=== PATIENT | male | born 1950 | race Caucasian/White ===

== ENCOUNTER 2016-09-14 09:47 | Emergency (ER) | payer MEDICARE | END 2016-09-14 13:30 | disposition home or self-care (01) | LOC: D.ER 09:47 | DX: M54.31 Sciatica, right side (principal); F17.200 Nicotine dependence, unspecified, uncomplicated; E11.9 Type 2 diabetes mellitus without complications ==

== ENCOUNTER 2019-10-12 03:08 | Inpatient (IN) | payer MEDICARE ==
[2019-10-12] VITALS (9 sets, daily range): BP systolic 116–158; BP diastolic 73–95
[~2019-10-12] VITALS: Ht 172.7 cm; Wt 90.5 kg
--- NOTE | ~2019-10-12 | HEMODYNAMI ---
PATIENT:VALDO ARAIZA MEDICAL RECORD: [id number] : 52 LOCATION:[address] [id number] ADMISSION DATE: 10/12/19 Generatedon:10/14/201913:51 Patient name: VALDO ARAIZA Patient #: [id number] SSN: [id number] : 1950 Date of study: 10/14/2019 Page: Of Hemodynamic Procedure Report Patient Data Patient Demographics Procedure consent was obtained First Name: VALDO Gender: Male Last Name: JOSE G : 1950 [facility] Initial: F Age: 69 year(s) Patient #: [id number] Race: SSN: [id number] Additional ID: [id number] Contact details Address: [address] [place] [address] State: [place] City: [place] Zip code: [address] Admission Admission Data Admission Date: 10/12/2019 Admission Time: 6:47 Arrival Date: 10/12/2019 Arrival Time: 6:47 Admit Source: Emergency Insurance Payor: Medicare department [facility] #: [id number] Room #: [facility] Procedure Procedure Types Cath Procedure Diagnostic Procedure [facility] LH w/Coronaries Sedation Charges Moderate Sedation up to 15 minutes Procedure Description Procedure Date Procedure Date: 10/14/2019 Procedure Start Time: 13:33 Procedure End Time: 13:46 Procedure Staff Name Function Gaurav Hunt MD Performing Physician Sharon Seaman RN Nurse Chance Yu RT Scrub Jennifer Herr RT Monitor Procedure Data Cath Procedure Fluoroscopy Diagnostic fluoroscopy Total fluoroscopy Time: 2.3 time: 2.3 min min Diagnostic fluoroscopy Total fluoroscopy dose: 892 dose: 892 mGy mGy Contrast Material Contrast Material Type Amount (ml) Isovue 300 114 Entry Location Entry Primary Successful Side Size Upsize Upsize Entry Closure Succes sful Closure Location (Fr) 1 (Fr) 2 (Fr) Remarks Device Remarks Femoral Right 5 Fr Exoseal artery Estimated blood loss: 5 ml Diagnostic catheters Device Type Used For End Catheter Placement MULTIPACK JL 4.0 5Fr Left Coronary catheter Angiography MULTIPACK 3DRC 5Fr Right Coronary catheter Angiography MULTIPACK Pigtail 5 Fr LV Angiography catheter Procedure Complications No complications Procedure Medications Medication Administration Route Dosage Oxygen etCO2 Nasal cannula 2 l/min Lidocaine 2% added to field 20 Heparin Flush Bag added to field 2 bags (1000units/500ml NS) 0.9% NaCl I.V. 100 ml/hr Cardizem I.V. drip 5 mg/hr (125mg/125ml NS) Versed I.V. 1 mg Fentanyl I.V. 50 mcg Versed I.V. 1 mg Fentanyl I.V. 50 mcg Hemodynamics Rest Heart Rate: 87 (bpm) Pressure Samples Time Site Value (mmHg) Purpose Heart Use Rate(bpm) 13:42 LV 161/0,16 Snapshot 96 13:43 AO 122/69(93) Pullback 92 13:43 LV 158/-1,17 Pullback 92 Gradients Valve Time Site 1 Site 2 Mean SEP/DFP Peak To Heart Use (mmHg) (sec/min) Peak Rate (mmHg) (bpm) Aortic 13:43 LV AO 28 20 36 92 158/-1,17 122/69(93) Calculations Valve P-P Mean Valve Index Valve Source Name Gradient Area Flow (cm2) Aortic 36 28 36 28 Snapshots Pre Cath Intra NCS Post Cath Vital Signs Time Heart Resp SPO2 etCO2 NIBP (mmHg) Rhythm Pain Sedation Rate (ipm) (%) (mmHg) Status Level (bpm) 13:11:06 87 27 94 3 138/79(109) A-Fib 0 (11) 10(A) , No pain 13:15:26 93 25 92 7.5 111/73(96) A-Fib 0 (11) 10(A) , No pain 13:20:21 93 24 93 32.3 115/78(94) A-Fib 0 (11) 10(A) , No pain 13:24:13 84 22 92 3 122/72(100) A-Fib 0 (11) 10(A) , No pain 13:28:06 93 21 92 0 108/70(91) A-Fib 0 (11) 9(A) , No pain 13:31:56 96 21 92 3.7 115/75(103) A-Fib 0 (11) 9(A) , No pain 13:35:47 86 20 92 33 115/74(88) A-Fib 0 (11) 9(A) , No pain 13:40:05 89 18 91 23.2 137/78(96) A-Fib 0 (11) 10(A) , No pain 13:44:32 97 17 92 31.5 105/75(87) A-Fib 0 (11) 10(A) , No pain Medications Time Medication Route Dose Verified Delivered Reason Notes Effectiveness by by 13:10:31 Oxygen etCO2 2 Gaurav Buffie used for Nasal l/min Gilbert Seaman RN procedure cannula 13:10:38 Lidocaine 2% added 20ml Gaurav Gaurav for local to vial Gilbert Hunt MD anesthetic field 13:10:45 Heparin Flush added 2 Gaurav Gaurav used for Bag to bags Gilbert Hunt MD procedure (1000units/500ml field NS) 13:10:53 Cardizem I.V. 5 Gaurav Buffie Per Continued (125mg/125ml NS) drip mg/hr Gilbert Seaman RN physician drip from floor via smart pump 13:10:54 0.9% NaCl I.V. 100 Gaurav Buffie Per ml/hr Gilbert Seaman RN physician 13:21:41 Versed I.V. 1 mg Gaurav Buffie for Gilbert Seaman RN sedation 13:21:48 Fentanyl I.V. 50 Gaurav Buffie for mcg Gilbert Seaman RN sedation 13:36:39 Versed I.V. 1 mg Gaurav Buffie for Gilbert Seaman RN sedation 13:36:43 Fentanyl I.V. 50 Gaurav Buffie for mcg Gilbert Seaman RN sedation Procedure Log Time Note 12:50:13 Informed consent obtained and on chart 12:50:42 Sharon Seaman RN sent for patient. Start room use. 13:10:22 Vital chart was started 13:10:31 Oxygen 2 l/min etCO2 Nasal cannula was administered by Sharon eSaman RN; used for procedure; Verbal order read back and verified. 13:10:38 Lidocaine 2% 20ml vial added to field was administered by Gaurav Hunt MD; for local anesthetic; Verbal order read back and verified. 13:10:40 Procedure Status Urgent Heart Cath (IP). 13:10:45 Heparin Flush Bag (1000units/500ml NS) 2 bags added to field was administered by Gaurav Hunt MD; used for procedure; Verbal order read back and verified. 13:10:53 Cardizem (125mg/125ml NS) 5 mg/hr I.V. drip was administered by Sharon Seaman RN; Per physician; Continued drip from floor via smart pump Verbal order read back and verified. 13:10:53 Time tracking: Regular hours (M-F 7:00 - 5:00) 13:10:54 0.9% NaCl 100 ml/hr I.V. was administered by Sharon Seaman RN; Per physician; Verbal order read back and verified. 13:10:57 Plan of Care:Hemodynamics will remain stable., Cardiac rhythm will remain stable., Comfort level will be maintained., Respiratory function will remain adequate., Patient/ family verbilizes understanding of procedure., Procedure tolerated without complication., Recovers from procedure without complications.. 13:11:01 Patient received from Med II to [facility] 2 Alert and oriented. Tansferred to table in Supine position. 13:11:02 Warm blankets applied, and jacob hugger turned on for patient comfort. 13:11:03 Correct patient and procedure confirmed by team. 13:11:04 Baseline sample Acquired. 13:11:04 ECG and BP/O2 sat monitors applied to patient. 13:11:14 Rhythm: atrial fibrillation 13:11:15 Full Disclosure recording started 13:11:19 H&P Date Dictated: 10/14/2019 New H&P dictated by physician.. 13:11:20 Pre-procedure instructions explained to patient. 13:11:21 Pre-op teaching completed and patient verbalized understanding. 13:12:48 Family unavailable. 13:12:50 Patient NPO since Midnight. 13:12:52 Is the patient allergic to Iodine/contrast media? No. 13:12:53 Was the patient premedicated? Yes 13:12:54 Is patient on blood thinner?Yes 13:12:56 ACC The patient was administered the following blood thiners within the last 24 hours: ACCLovenox 13:12:58 Patient diabetic? No. 13:13:00 Previous problem with sedation/anesthesia? No ? 13:13:02 Snore? Yes 13:13:03 Sleep apnea? No 13:13:05 Deviated septum? No 13:13:07 Opens mouth fully? Yes 13:13:07 Sticks out tongue? Yes 13:13:09 Airway obstruction? No ? 13:13:12 Dentures? No ? 13:13:14 Pre procedure: right dorsailis pedis pulse 1+ Palpable, but thready & weak; easily obliterated 13:13:17 Pre procedure: left dorsailis pedis pulse 1+ Palpable, but thready & weak; easily obliterated 13:13:20 Patient pain scale 0/10 ?. 13:13:25 IV patent on arrival in left forearm with 0.9% NaCl at [facility]. 13:13:28 Lab results completed and on chart. 13:13:34 Stress Test: no; N/A ? 13:13:38 Right groin area was prepped with chlora-prep and draped in sterile fashion 13:13:39 Alarms reviewed by R. N. 13:13:40 Sharps counted by scrub and verified by R.N. 13:13:41 Physician arrived 13:13:41 --------ALL STOP TIME OUT------ 13:13:42 Final Timeout: patient, procedure, and site verified with staff and physician. All members of the team are in agreement. 13:13:44 Right groin site verified by team. 13:13:47 Fire Safety Assessment: A--An alcohol-based skin anteseptic being used preoperatively., C--Open oxygen or nitrous oxide is being used., D--An ESU, laser, or fiber-optic light is being used. 13:13:50 Physical assessment completed. ASA score P 2 - A patient with mild systemic disease as per Gaurav Hunt MD. 13:15:38 2) 60-89 Mildly reduced kidney function, and other findings (as for stage 1) point to kidney disease. 13:19:45 Zero performed for pressure channel P1 13:20:26 Maximum allowable contrast dose (3.7 X eGFR X 0.75)177 ml. 13:20:30 Sedation plan: IV Moderate Sedation Medication:Versed, Fentanyl 13:20:34 Use device set Femoral Dx 13:20:35 ACIST Syringe (94485) opened to sterile field. 13:20:35 Bag Decanter (2002S) opened to sterile field. 13:20:35 Medline Cath Pack ([id number]) opened to sterile field. 13:20:36 ACIST Hand Control (97533) opened to sterile field. 13:20:37 ACIST Manifold (09297) opened to sterile field. 13:20:37 DIAGNOSTIC Multipack 5Fr catheter set (WJ4264) opened to sterile field. 13:20:38 Tegaderm 4 x 4 (1626W) opened to sterile field. 13:20:39 SHEATH 5FR [place] (IPZ981) opened to sterile field. 13:20:40 EMERALD Guide Wire (623-171) opened to sterile field. 13:21:41 Versed 1 mg I.V. was administered by Sharon Seaman RN; for sedation; Verbal order read back and verified. 13:21:48 Fentanyl 50 mcg I.V. was administered by Sharon Seaman RN; for sedation; Verbal order read back and verified. 13:33:21 Procedure started. 13:33:30 Local anesthetic to right femoral artery with Lidocaine 2% by Gaurav Hunt MD.INITIAL ACCESS ONLY 13:33:37 A 5 Fr sheath was inserted into the Right Femoral artery 13:35:40 A MULTIPACK JL 4.0 5Fr catheter was advanced over the wire and used for Left Coronary Angiography. 13:36:39 Versed 1 mg I.V. was administered by Sharon Seaman RN; for sedation; Verbal order read back and verified. 13:36:43 Fentanyl 50 mcg I.V. was administered by Sharon Seaman RN; for sedation; Verbal order read back and verified. 13:36:58 LCA angiography performed. 13:37:00 Injector settings: Ml/sec: 3, Volume: 6, 13:38:13 Catheter removed. 13:38:18 A MULTIPACK 3DRC 5Fr catheter was advanced over the wire and used for Right Coronary Angiography. 13:40:19 RCA angiography performed. 13:40:22 Injector settings: Ml/sec: 3, Volume: 6, 13:40:54 Catheter removed. 13:41:01 A MULTIPACK Pigtail 5 Fr catheter was advanced over the wire and used for LV Angiography. 13:42:22 LV hemodynamics recorded. 13:42:23 LV gram done using ROBERTSON 13:42:26 Injector settings: Ml/sec: 5, Volume: 15, 13:42:42 EF : 60 % 13:43:39 Aortic Root visualized 13:43:46 ACCDominant side:Right 13:44:39 Catheter removed. 13:44:43 EXOSEAL 5Fr (EX500) opened to sterile field. 13:44:51 Sheath removed intact; hemostasis achieved with Exoseal to the Right Femoral artery. 13:45:02 Procedure ended.(Physican Out) 13:45:18 Fluoroscopy time 02.30 minutes. 13:45:23 Fluoroscopy dose: 892 mGy 13:45:23 Flurop Dose total: 892 13:45:28 Dose Area Product 61051 mGy/cm. 13:45:31 Contrast amount:Isovue 300 114ml. 13:45:33 Maximum allowable dose exceeded? No. 13:45:34 Sharps counted by scrub and verified by R.N. 13:45:38 Insertion/operative site no bleeding no hematoma. 13:45:41 Post-op/insertion site Right Femoral artery dressed using a 4 x 4 and Tegaderm. 13:45:45 Post procedure rhythm: unchanged. 13:45:48 Estimated blood loss: 5 ml 13:45:50 Post procedure instruction explained to patient.Patient verbalizes understanding. 13:45:51 Patient needs reinforcement of post procedure teaching. 13:46:23 Procedure type changed to Cath procedure, Diagnostic procedure, C, [facility] w/Coronaries, Sedation Charges, Moderate Sedation up to 15 minutes 13:46:25 Procedure and supply charges have been captured, reviewed, submitted and are correct. 13:46:29 Procedure Complication : No complications 13:46:31 Vital chart was stopped 13:46:36 [facility] Findings: MVD- MD will discuss options w/ pt 13:46:38 Operative report dictated upon procedure completion. 13:46:38 See physician's report for complete and final results. 13:46:41 Report given to [facility]. 13:46:44 Patient transfered to [facility] with Stretcher. 13:46:46 Procedure ended. 13:46:46 Full Disclosure recording stopped 13:46:53 End room use (Document Last) 13:48:48 Arrival Date: 10/12/2019 6:47:00 AM 13:49:05 Insurance Payor : Medicare 13:49:09 Admit Source: Emergency department Device Usage Item Name Manufacture Quantity Catalog Hospital Part Current Minimal L ot# / Number Charge Number Stock Stock Serial# Code ACIST Acist 1 83571 [id number] 289123 636975 20 Syringe Medical (00709) Systems Inc Bag Microtek 1 2001S 939955 34272 995122 5 Decanter Medical Inc. () Medline Medline 1 [id number] 110415 72699 800068 5 Cath Pack ([id number]) ACIST Hand Acist 1 88626 124301 082324 261771 5 Control Medical (23711) Systems Inc ACIST Acist 1 76508 914973 197677 765703 5 Manifold Medical (93987) Systems Inc DIAGNOSTIC Cardinal 1 [id number] 923660 65365 947063 30 Multipack Health 5Fr catheter set (UL9794) Tegaderm 4 3M 1 1626W 093619 310445 854002 5 x 4 (1626W) SHEATH 5FR Terumo 1 [id number] 517475 509223 674798 5 [place] (PXB630) EMERALD Cardinal 1 502-455 647085 004235 957772 5 Guide Wire [facility] (502455) MULTIPACK Cardinal 1 795404 5 JL 4.0 5Fr Health catheter MULTIPACK Cardinal 1 479390 5 3DRC 5Fr Health catheter MULTIPACK Cardinal 1 736713 5 Pigtail 5 Health Fr catheter EXOSEAL 5Fr Cardinal 1 EX500 415891 703326 291014 10 (EX500) Health Signature Audit [place] Stage Time Signature Unsigned Intra-Procedure 10/14/2019 Jennifer Herr 1:49:37 PM RT(R) Intra-Procedure 10/14/2019 Sharon Seaman RN 1:50:49 PM Intra-Procedure 10/14/2019 Gaurav Hunt MD 1:51:16 PM Signatures Performing Physician : Signature : Gaurav Hunt MD Date : Time : Nurse : Sharon Seaman RN Signature : Date : Time : Monitor : Jennifer Nemesio RT Signature : Date : Time : [place] [id number] [place] [address]
[2019-10-12 03:22] LABS: BASOPHILS 0.2 % (0-2); EOSINOPHILS 1.3 % (0-7); HEMATOCRIT 37.8 % (42.0-54.0); IMMATURE GRANULOCYTES 0.2 % (0-5); LYMPHOCYTES 25.3 % (15-50); MCH 30.3 pg (26.0-34.0); MCHC 31.7 g/dL (31.0-37.0); MCV 95.5 fL (80.0-100.0); MONOCYTES 5.1 % (2-11); NEUTROPHILS 67.9 % (40-80); RBC 3.96 10x6/uL (4.20-6.10); RDW 15.1 % (11.5-14.5); WBC 5.5 10x3/uL (4.8-10.8)
[2019-10-12 03:25] LABS: PLATELET COUNT 158 10x3/uL (130-400)
[2019-10-12 03:28] LABS: CALC OSMOLALITY 277 mosm/kg (275-300); CARBON DIOXIDE 26.9 mmol/L (21.0-32.0); CHLORIDE - SERUM 100 mmol/L (98-107); CREATININE - SERUM 1.3 mg/dL (0.6-1.3); POTASSIUM - SERUM 5.4 mmol/L (3.5-5.1); SODIUM 137 mmol/L (136-145); UREA NITROGEN 16 mg/dL (7-18); eGFR NON AFRICAN AMERICAN 58 mL/min (90-120)
[2019-10-12 03:31] LABS: APTT 21.4 SECONDS (22.8-39.4); INR 1.1 (0.85-1.17); PROTIME 14.2 SECONDS (11.6-15.0)
[2019-10-12 03:32] LABS: D-DIMER-QUANTITATIVE 1.06 ug/mLFEU (0.20-0.54); GLUCOSE 155 mg/dL (74-106)
--- NOTE | 2019-10-12 03:45 | NUR ---
PT VOIDED 175ML LIGHT YELLOW URINE AT THIS TIME. CALL LIGHT IN REACH. WILL CONTINUE TO MONITOR.
[2019-10-12 03:59] LABS: ALBUMIN 3.7 g/dL (3.4-5.0); ALKALINE PHOSPHATASE 172 U/L (30-120); ALT (SGPT) 50 U/L (10-68); BILIRUBIN - TOTAL 0.64 mg/dL (0.2-1.3); CKMB 1.9 U/L (0.0-3.6); CREATINE KINASE 155 UL (21-232); PRO BNP 1839 pg/mL (0-125); PROTEIN - SERUM 8.7 g/dL (6.4-8.2)
[2019-10-12 04:05] LABS: TROPONIN-I < 0.017 ng/mL (0.000-0.060)
[2019-10-12 04:16] LABS: BILIRUBIN NEGATIVE (NEGATIVE); GLUCOSE NEGATIVE (NEGATIVE); KETONE NEGATIVE (NEGATIVE); NITRITE NEGATIVE (NEGATIVE); UROBILINOGEN NORMAL (NORMAL)
--- NOTE | 2019-10-12 04:20 | NUR ---
PT VOIDED 500ML LIGHT YELLOW URINE AT THIS TIME.
--- NOTE | 2019-10-12 04:57 | NUR ---
PT TO RADIOLOGY AT THIS TIME.
--- NOTE | 2019-10-12 07:00 | NUR ---
PT LAYING IN BED. NO DISTRESS NOTED. COLOR WNL FOR RACE. VSS. WILL CONTINUE TO MONITOR. AWAITING BED ASSIGNMENT.
--- NOTE | 2019-10-12 12:38 | NUR ---
PT ARRIVED TO ROOM VIA WHEELCHAIR. ALERT AND ORIENTED, UP WITHOUT ASSIST. USES URINAL. CL IN REACH, SRX2 .
[2019-10-12 15:30] LABS: CKMB 1.3 U/L (0.0-3.6); CREATINE KINASE 88 UL (21-232); MAGNESIUM - SERUM 1.8 mg/dL (1.8-2.4); TROPONIN-I < 0.017 ng/mL (0.000-0.060)
[2019-10-12 20:22] LABS: CREATINE KINASE 96 UL (21-232); TROPONIN-I < 0.017 ng/mL (0.000-0.060)
--- NOTE | 2019-10-13 01:00 | NUR ---
RECIEVED REPORT FROM PRIMARY NURSE. [facility] CARE AT THIS TIME. PT ALERT/ORIENTED. MOVED FROM 2132 TO 2121 AFTER RECEIVING CONFIRMATION FROM ELANA IN LAB THAT PATIENT IS NEGATIVE FOR HIS COVID SWAB.
[2019-10-13 03:14] LABS: BASOPHILS 0.1 % (0-2); EOSINOPHILS 4.3 % (0-7); HEMATOCRIT 34.6 % (42.0-54.0); HEMOGLOBIN 10.7 g/dL (13.5-17.5); IMMATURE GRANULOCYTES 1.1 % (0-5); LYMPHOCYTES 19.6 % (15-50); MCH 29.6 pg (26.0-34.0); MCHC 30.9 g/dL (31.0-37.0); MCV 95.8 fL (80.0-100.0); MEAN PLATELET VOLUME 9.3 fL (7.4-10.4); MONOCYTES 7.6 % (2-11); NEUTROPHILS 67.3 % (40-80); PLATELET COUNT 225 10x3/uL (130-400); RBC 3.61 10x6/uL (4.20-6.10); RDW 15.2 % (11.5-14.5); WBC 8.8 10x3/uL (4.8-10.8)
[2019-10-13 03:50] LABS: ALBUMIN 3.2 g/dL (3.4-5.0); ALKALINE PHOSPHATASE 138 U/L (30-120); ALT (SGPT) 40 U/L (10-68); BILIRUBIN - TOTAL 0.89 mg/dL (0.2-1.3); CALC OSMOLALITY 277 mosm/kg (275-300); CALCIUM 8.3 mg/dL (8.5-10.1); CHLORIDE - SERUM 102 mmol/L (98-107); CREATINE KINASE 87 UL (21-232); CREATININE - SERUM 1.4 mg/dL (0.6-1.3); GLUCOSE 135 mg/dL (74-106); MAGNESIUM - SERUM 1.9 mg/dL (1.8-2.4); PROTEIN - SERUM 7.7 g/dL (6.4-8.2); SODIUM 137 mmol/L (136-145); UREA NITROGEN 18 mg/dL (7-18); eGFR NON AFRICAN AMERICAN 53 mL/min (90-120)
[2019-10-13 03:53] LABS: CARBON DIOXIDE 33.7 mmol/L (21.0-32.0); POTASSIUM - SERUM 4.1 mmol/L (3.5-5.1); TROPONIN-I < 0.017 ng/mL (0.000-0.060)
[2019-10-13 04:00] VITALS: BP 111/65
--- NOTE | 2019-10-13 04:47 | NUR ---
RESTING IN BED WITH EYES CLOSED. AFIB PER TELEMETRY. IV CARDIZEM INFUSING AT 5ML/HR. CPOC.
--- NOTE | 2019-10-13 07:00 | NUR ---
RECEIVED REPORT. ASSUMED CARE OF PATIENT. PATIENT SITTING UP IN BED WITH EYES OPEN, ATTENTION TOWARDS TELEVISION AT THIS TIME. BEDSIDE SHIFT REPORT COMPLETE. WHITE BOARD UPDATED. CALL LIGHT WITHIN REACH. PATIENT DENIES NEEDS AT THIS TIME. NO DISTRESS.
--- NOTE | 2019-10-13 10:02 | NUR ---
MEDICATED FOR GENERALIZED ARTHRITIC PAIN AT THIS TIME. NO DISTRESS. CALL LIGHT WITHIN REACH.
[2019-10-13 10:34] LABS: BASOPHILS 0.1 % (0-2); EOSINOPHILS 1.8 % (0-7); HEMATOCRIT 35.7 % (42.0-54.0); HEMOGLOBIN 11.2 g/dL (13.5-17.5); IMMATURE GRANULOCYTES 0.3 % (0-5); LYMPHOCYTES 18.9 % (15-50); MCH 30.1 pg (26.0-34.0); MCHC 31.4 g/dL (31.0-37.0); MEAN PLATELET VOLUME 9.4 fL (7.4-10.4); MONOCYTES 7.5 % (2-11); NEUTROPHILS 71.4 % (40-80); PLATELET COUNT 223 10x3/uL (130-400); RBC 3.72 10x6/uL (4.20-6.10); WBC 6.8 10x3/uL (4.8-10.8)
[2019-10-13 10:36] VITALS: BP 105/67
[2019-10-13 10:48] LABS: ANION GAP 6.6 mmol/L (8-16); CALCIUM 8.2 mg/dL (8.5-10.1); CARBON DIOXIDE 32.3 mmol/L (21.0-32.0); CHOL - HDL RATIO 3.3 ratio (2.3-4.9); CREATININE - SERUM 1.5 mg/dL (0.6-1.3); LDL-HDL RATIO 1.7 ratio (1.5-3.5); POTASSIUM - SERUM 3.9 mmol/L (3.5-5.1)
[2019-10-13 12:23] VITALS: BP 128/74
--- NOTE | 2019-10-13 13:28 | NUR ---
ECHO BEING COMPLETED AT BEDSIDE AT THIS TIME.
[2019-10-13 16:03] VITALS: BP 111/69
--- NOTE | 2019-10-13 20:24 | NUR ---
INITIAL ROUNDS COMPLETED AT 1920 HRS. PT STATES HIS L EAR IS STILL HURTING BUT ALOT LESS THAN BEFORE. ASSESSMENT COMPLETED AT 2015 HRS. CAF PER CM HR 86. ALERT AND ORIENTED TO PERSON, PLACE AND TIME. [place]. O2 2LNC. LUNNGS DIMINISHED IN BASES BILAT. IV TO LFA WITH CARDIZEN AT 5MG/HR. IV PATENT. SR UP X1, CALL LIGHT WITHIN REACH.
[2019-10-13 20:48] VITALS: BP 105/66
[2019-10-14 00:30] VITALS: BP 100/59
--- NOTE | 2019-10-14 00:48 | NUR ---
PT HAD C/O SOB. O2 OFF AND O2 SAT 86%. O2 2LNC PLACED BACK ON AND O2 SAT UP TO 96% AFTER A FEW MINUTES.
--- NOTE | 2019-10-14 02:18 | NUR ---
PT RESTING WITH EYES CLOSED. RESP EVEN AND REGULAR. SR UP X2, CALL LIGHT WITHN REACH.
--- NOTE | 2019-10-14 04:15 | NUR ---
PT RESTING WITH EYES CLOSED. RESP EVEN AND REGULAR. SR UP X1, CALL LIGHT WITHIN REACH.
[2019-10-14 04:30] VITALS: BP 114/64
[2019-10-14 05:56] LABS: BASOPHILS 0 % (0-2); EOSINOPHILS 1.3 % (0-7); HEMATOCRIT 36.2 % (42.0-54.0); HEMOGLOBIN 11.2 g/dL (13.5-17.5); IMMATURE GRANULOCYTES 0.1 % (0-5); LYMPHOCYTES 21.8 % (15-50); MCH 29.6 pg (26.0-34.0); MCHC 30.9 g/dL (31.0-37.0); MCV 95.8 fL (80.0-100.0); MEAN PLATELET VOLUME 9.8 fL (7.4-10.4); MONOCYTES 7.5 % (2-11); NEUTROPHILS 69.3 % (40-80); PLATELET COUNT 222 10x3/uL (130-400); RBC 3.78 10x6/uL (4.20-6.10); RDW 14.9 % (11.5-14.5); WBC 7.7 10x3/uL (4.8-10.8)
[2019-10-14 06:38] LABS: ALBUMIN 3.5 g/dL (3.4-5.0); ANION GAP 11.1 mmol/L (8-16); BILIRUBIN - TOTAL 0.59 mg/dL (0.2-1.3); CALCIUM 8.8 mg/dL (8.5-10.1); CARBON DIOXIDE 29.9 mmol/L (21.0-32.0); CREATININE - SERUM 1.2 mg/dL (0.6-1.3); MAGNESIUM - SERUM 2.3 mg/dL (1.8-2.4); PROTEIN - SERUM 7.5 g/dL (6.4-8.2)
--- NOTE | 2019-10-14 06:54 | NUR ---
HIBICLENS BATH COMPLETED. GROINS PREPPED. CR 1.5. NS AT 100CC/HR INITIATED PER PREOP LHC ORDERS.
--- NOTE | 2019-10-14 06:57 | NUR ---
AM CR 1.2. NS AT 20CC/HR
[2019-10-14 08:00] VITALS: BP 108/68
[2019-10-14 11:00] VITALS: BP 111/63
[2019-10-14 13:44] VITALS: Ht 172.7 cm; Wt 90.5 kg
--- NOTE | 2019-10-14 14:12 | NUR ---
ARRIVES BACK TO ROOM VIA BED. REMAIN FLAT FOR NEXT 2 HOURS. RT GROIN DRESSING CLEAN DRY INTACT. FREE FROM HEMATOMA. FREE FROM BLEEDING. BP-137/67, HR-89 CONTROLLED AFIB, O2-94% WITH 4L NC. PULSE PALPABLE BILATERALLY. CONTINUE PLAN OF CARE AND SAFETY PRECAUTIONS.
[2019-10-14 15:00] VITALS: BP 117/68
--- NOTE | 2019-10-14 19:23 | NUR ---
REPORT RECEIVED AND ROUNDING COMPLETE. PATIENT LAYING IN BED IN HIGH FOWLERS, STATES NO NEEDS AT THIS TIME, LEFT AC PIV THAT IS RUNNIGN FLUIDS AND IS PATENT AT THIS TIME. WEARING NASAL CANNULA WITH O2 AT 2L. RIGHT GROIN DRESSING C/D/I. STATES NO NEEDS AT THIS TIME. CALL LIGHT WITHIN REACH AND BED IN LOWEST LOCKED POSITION. NO DISTRESS NOTED.
[2019-10-14 20:00] VITALS: BP 101/56
--- NOTE | 2019-10-14 22:38 | NUR ---
TALKED TO DR. ANDREWS ABOUT CARDIZEM DRIP THAT IS ORDERED BUT NOT HOOKED UP TO PATIENT. NEW ORDERS GIVEN WITH A BOLUS AND HORLY RATE. WILL FOLLOW ORDERS.
[2019-10-15] VITALS: BP 149/65
[2019-10-15 04:00] VITALS: BP 115/67
[2019-10-15 06:00] LABS: BASOPHILS 0.2 % (0-2); EOSINOPHILS 2.1 % (0-7); HEMATOCRIT 35.6 % (42.0-54.0); HEMOGLOBIN 10.9 g/dL (13.5-17.5); IMMATURE GRANULOCYTES 0.2 % (0-5); LYMPHOCYTES 19.9 % (15-50); MCH 29.5 pg (26.0-34.0); MCHC 30.6 g/dL (31.0-37.0); MCV 96.5 fL (80.0-100.0); MEAN PLATELET VOLUME 9.5 fL (7.4-10.4); MONOCYTES 9.8 % (2-11); NEUTROPHILS 67.8 % (40-80); PLATELET COUNT 237 10x3/uL (130-400); RBC 3.69 10x6/uL (4.20-6.10); RDW 14.8 % (11.5-14.5); WBC 6.5 10x3/uL (4.8-10.8)
[2019-10-15 06:22] LABS: ALBUMIN 3.2 g/dL (3.4-5.0); ANION GAP 9.3 mmol/L (8-16); BILIRUBIN - TOTAL 0.48 mg/dL (0.2-1.3); CALCIUM 7.8 mg/dL (8.5-10.1); CARBON DIOXIDE 31.5 mmol/L (21.0-32.0); CREATININE - SERUM 1.4 mg/dL (0.6-1.3); MAGNESIUM - SERUM 2.4 mg/dL (1.8-2.4); POTASSIUM - SERUM 4.8 mmol/L (3.5-5.1); PROTEIN - SERUM 7.4 g/dL (6.4-8.2)
--- NOTE | 2019-10-15 07:20 | NUR ---
RECIEVE REPORT. ALERT AND ORIENTED X4. SITTING UP IN BED. CARDIZEM DRIP INFUSING ORDERED. CONTROLLED AFIB 89 ON TELEMETRY. DENIES ANY NEEDS. CONTINUE PLAN OF CARE AND SAFETY PRECAUTIONS.
[2019-10-15 09:36] VITALS: BP 95/74
[2019-10-15 12:00] VITALS: BP 113/73
[2019-10-15 16:00] VITALS: BP 126/67
--- NOTE | 2019-10-15 19:52 | NUR ---
RECEIVED BEDSIDE REPORT. PATIENT IS ALERT AND ORIENTED, RESTING COMFORTABLY IN BED. RESPIRATIONS ARE EVEN AND UNLABORED. NO S/S OF DISTRESS. NO C/O PAIN. CALL LIGHT WITHIN REACH. WILL CPOC.
[2019-10-15 20:00] VITALS: BP 115/67
[2019-10-16] VITALS: BP 132/71
[2019-10-16 04:00] VITALS: BP 113/65
[2019-10-16 06:57] LABS: BASOPHILS 0.1 % (0-2); EOSINOPHILS 1.6 % (0-7); HEMATOCRIT 33.5 % (42.0-54.0); HEMOGLOBIN 10.6 g/dL (13.5-17.5); IMMATURE GRANULOCYTES 0.1 % (0-5); LYMPHOCYTES 19.9 % (15-50); MCH 30.3 pg (26.0-34.0); MCHC 31.6 g/dL (31.0-37.0); MCV 95.7 fL (80.0-100.0); MEAN PLATELET VOLUME 9.6 fL (7.4-10.4); MONOCYTES 8.1 % (2-11); NEUTROPHILS 70.2 % (40-80); PLATELET COUNT 229 10x3/uL (130-400); RDW 14.8 % (11.5-14.5); WBC 8.1 10x3/uL (4.8-10.8)
[2019-10-16 07:38] LABS: ALBUMIN 3.3 g/dL (3.4-5.0); BILIRUBIN - TOTAL 0.48 mg/dL (0.2-1.3); CALCIUM 7.6 mg/dL (8.5-10.1); CARBON DIOXIDE 29.9 mmol/L (21.0-32.0); CREATININE - SERUM 1.2 mg/dL (0.6-1.3); MAGNESIUM - SERUM 2.1 mg/dL (1.8-2.4); POTASSIUM - SERUM 4.9 mmol/L (3.5-5.1)
[2019-10-16 08:50] VITALS: BP 134/66
[2019-10-16 11:27] VITALS: BP 125/67
[2019-10-16 16:14] VITALS: BP 107/68
[2019-10-16 20:00] VITALS: BP 131/65
[2019-10-17 06:29] LABS: BASOPHILS 0 % (0-2); EOSINOPHILS 1.7 % (0-7); HEMATOCRIT 31.8 % (42.0-54.0); HEMOGLOBIN 10.1 g/dL (13.5-17.5); IMMATURE GRANULOCYTES 0.1 % (0-5); LYMPHOCYTES 19.8 % (15-50); MCH 30.4 pg (26.0-34.0); MCHC 31.8 g/dL (31.0-37.0); MCV 95.8 fL (80.0-100.0); MEAN PLATELET VOLUME 9.5 fL (7.4-10.4); MONOCYTES 8.2 % (2-11); NEUTROPHILS 70.2 % (40-80); PLATELET COUNT 209 10x3/uL (130-400); RBC 3.32 10x6/uL (4.20-6.10); RDW 14.5 % (11.5-14.5); WBC 7.2 10x3/uL (4.8-10.8)
[2019-10-17 06:33] LABS: APTT 46.1 SECONDS (22.8-39.4); INR 1.08 (0.85-1.17); PROTIME 13.9 SECONDS (11.6-15.0)
[2019-10-17 06:59] LABS: ALBUMIN 3.1 g/dL (3.4-5.0); ANION GAP 10.8 mmol/L (8-16); BILIRUBIN - TOTAL 0.42 mg/dL (0.2-1.3); CALCIUM 8.1 mg/dL (8.5-10.1); CARBON DIOXIDE 30.2 mmol/L (21.0-32.0); CREATININE - SERUM 1.4 mg/dL (0.6-1.3); MAGNESIUM - SERUM 2.1 mg/dL (1.8-2.4); PHOSPHOROUS 3.1 mg/dL (2.5-4.9); PROTEIN - SERUM 7.6 g/dL (6.4-8.2); T4 THYROXIN - FREE 0.89 ng/dL (0.76-1.46); THYROID STIMULATING HORMONE 4.41 uIU/mL (0.36-3.74); URIC ACID 5.8 mg/dL (2.6-7.2)
[2019-10-17 08:58] VITALS: BP 109/61
[2019-10-17 09:40] LABS: PLT FUNCT.(P2Y12) PLAVIX 307 PRU (194-418)
[2019-10-17 09:42] LABS: BILIRUBIN NEGATIVE (NEGATIVE); GLUCOSE NEGATIVE (NEGATIVE); KETONE NEGATIVE (NEGATIVE); NITRITE NEGATIVE (NEGATIVE); UROBILINOGEN NORMAL (NORMAL)
[2019-10-17 09:43] LABS: BACTERIA FEW /hpf (NEGATIVE); RED CELLS - URINE OCC /hpf (0-5); WHITE CELLS - URINE RARE /hpf (NEGATIVE)
[2019-10-17 10:12] LABS: IMMUNOGLOBULIN E 709 IU/mL (6-495)
[2019-10-17 11:24] VITALS: BP 120/70
--- NOTE | 2019-10-17 12:36 | NUR ---
Nutrition Follow-up: Good/fair PO intake. Ate 100% this AM. CABG and AVR planned for tomorrow. Noted A1C 6.8. Diet: Cardiac -> Full Liquid PO intake: 79% avg x 7 meals Wt: 204# (10/13) Labs noted: Glu 206, A1C 6.8, Ca 8.1. Alb 3.1 Meds noted: Protonix, electrolyte protocol -Pt will need to be on carb consistent diet following surgery. Will educate prior to d/c. -Monitor wt; noted daily wts ordered. -RD following.
[2019-10-17 15:17] VITALS: BP 119/71
--- NOTE | 2019-10-17 17:10 | NUR ---
RECEIVED VERBAL ORDERS PER HE WAS WALKING OFF TO STOP THE CARDIZEM WELL THE HEPARIN AND TO NOT START A NEW PIV THAT HE WOULD HAVE TO FIX HIS CAROTIDS BEFORE THE CABG. WILL DC BOTH MEDS PER VERBAL ORDERS.
--- NOTE | 2019-10-17 17:17 | NUR ---
SHANNAN THOMPSON'Iveth PER VERBAL ORDERS.
--- NOTE | 2019-10-17 17:34 | NUR ---
PIV TO THE RIGHT FOREARM WAS PATENT AND IV INFUSING WITHOUT ISSUE. I ENTERED THE ROOM TO PREPARE PATIENT FOR CABG TOMORROW R/T CRISTIANA ORDERS STATING NO PIV TO THE RIGHT ARM. I APPLIED THE TOURNIQUET AND WALKED IN STATING HE DIDNT NEED AN IV. I NEVER ATTEMPTED THE IV NOR HAD ANY DIFFICULTY WITH THE PERFECTLY PATENT IV TO THE RIGHT AC.
[2019-10-17 18:31] VITALS: BP 139/73
--- NOTE | 2019-10-17 19:39 | NUR ---
PT ALERT AND OX4 PT EXPRESSS NEED TO SLEEP I WILL ALLOW MUCH REST POSS BED LOW AND LOCKED AND CALL LIGHT IS IN REACH
[2019-10-18] VITALS (32 sets, daily range): BP systolic 107–152; BP diastolic 42–76
[2019-10-18 07:00] LABS: BASOPHILS 0.1 % (0-2); EOSINOPHILS 1.4 % (0-7); HEMATOCRIT 32.9 % (42.0-54.0); HEMOGLOBIN 10.1 g/dL (13.5-17.5); IMMATURE GRANULOCYTES 0.3 % (0-5); LYMPHOCYTES 19.9 % (15-50); MCH 29.7 pg (26.0-34.0); MCHC 30.7 g/dL (31.0-37.0); MCV 96.8 fL (80.0-100.0); MEAN PLATELET VOLUME 9.6 fL (7.4-10.4); MONOCYTES 8.2 % (2-11); NEUTROPHILS 70.1 % (40-80); PLATELET COUNT 230 10x3/uL (130-400); RDW 14.7 % (11.5-14.5)
[2019-10-18 07:36] LABS: ALBUMIN 3.1 g/dL (3.4-5.0); ANION GAP 11.1 mmol/L (8-16); BILIRUBIN - TOTAL 0.45 mg/dL (0.2-1.3); CALCIUM 8.3 mg/dL (8.5-10.1); CARBON DIOXIDE 29.3 mmol/L (21.0-32.0); CREATININE - SERUM 1.1 mg/dL (0.6-1.3); POTASSIUM - SERUM 4.4 mmol/L (3.5-5.1); PROTEIN - SERUM 7.2 g/dL (6.4-8.2)
--- NOTE | 2019-10-18 13:16 | NUR ---
PRE-OPS GIVEN. TO OR BY BED.
--- NOTE | 2019-10-18 17:23 | NUR ---
1642: REC'D TO CV 07 VIA BED FROM OR. CONNECTED TO BEDSIDE MONITOR. MOANING OUT. COMBATIVE WHEN STIMULATED. MORELAND. SPO2 80'S. PLACED ON BIPAP 18/8 FIO2 @60%. SEE FLOWSHEET FOR FULL ASSESSMENT.
--- NOTE | 2019-10-18 19:00 | NUR ---
REPORT RECEIVED. RECEIVED PATIENT IN BED. AWAKE AND ALERT. ORIENTED X 3 WITH SOME CONFUSION TO TIME. SPEECH MOSTLY CLEAR, GARBLED AT TIMES. DRSG TO RT NECK CDI. MUNDO INTACT/SECURE/PATENT AND COMPRESSED WITH BLOODY DRAINAGE IN BULB. ASSESSMENT COMPLETED PER FLOW SHEET WITH NO ACUTE DISTRESS OBSERVED. VSS. AFIB ON MONITOR WITH MOSTLY CONTROLLED RATE. WILL CONTINUE CURRENT POC
[2019-10-19] VITALS (83 sets, daily range): BP systolic 94–152; BP diastolic 56–96
[2019-10-19 06:56] LABS: BASOPHILS 0.1 % (0-2); EOSINOPHILS 5.7 % (0-7); HEMOGLOBIN 9.6 g/dL (13.5-17.5); IMMATURE GRANULOCYTES 1.6 % (0-5); LYMPHOCYTES 8.7 % (15-50); MCH 29.9 pg (26.0-34.0); MCV 96.6 fL (80.0-100.0); MEAN PLATELET VOLUME 9.1 fL (7.4-10.4); MONOCYTES 8.7 % (2-11); NEUTROPHILS 75.2 % (40-80); PLATELET COUNT 227 10x3/uL (130-400); RBC 3.21 10x6/uL (4.20-6.10); RDW 14.9 % (11.5-14.5)
[2019-10-19 07:10] LABS: WBC 9.5 10x3/uL (4.8-10.8)
[2019-10-19 07:36] LABS: ALBUMIN 3.2 g/dL (3.4-5.0); ANION GAP 12.2 mmol/L (8-16); BILIRUBIN - TOTAL 0.58 mg/dL (0.2-1.3); CALCIUM 7.8 mg/dL (8.5-10.1); CARBON DIOXIDE 30.6 mmol/L (21.0-32.0); POTASSIUM - SERUM 4.8 mmol/L (3.5-5.1); PROTEIN - SERUM 7.8 g/dL (6.4-8.2)
[2019-10-19 07:48] LABS: CREATININE - SERUM 1.4 mg/dL (0.6-1.3)
--- NOTE | 2019-10-19 08:34 | NUR ---
DR TODD CALLED RE: AFIB RATE 120 TO 130. REC'D NEW ORDERS. DR TODD HERE AT BS. LOPRESSOR ORDERED AGAIN. CLEVIPREX OFF, NITRO TITRATING DOWN FOR BP.
--- NOTE | 2019-10-19 10:57 | NUR ---
PT BACK ON BIPAP. NITRO AND CLEVIPREX FOR BP.
--- NOTE | 2019-10-19 11:26 | OP ---
PATIENT NAME: VALDO ARAIZA MEDICAL RECORD: [id number] :52 LOCATION:[id number] ADMISSION DATE:10/12/19 SURGEON: TAL TODD MD DATE OF OPERATION: 10/18/2019 SURGEON: Tal Todd MD PROCEDURE PERFORMED: Right carotid endarterectomy. ANESTHESIA: General endotracheal anesthesia. DIAGNOSES: Right carotid stenosis, critical, aortic stenosis, coronary artery disease, atrial fibrillation. POSTOPERATIVE DIAGNOSES: Right carotid stenosis, critical, aortic stenosis, coronary artery disease, atrial fibrillation. SPECIMENS: Plaque. CONDITION: Stable. DISPOSITION: CV ICU. COMPLICATIONS: None. BLOOD LOSS: 10 cc. FINDINGS: 1. Severely calcified plaque extending well up a large neck with distal exposure requiring muscle division and retraction of the hypoglossal nerve. 2. Neurologically intact to ICU utilizing BiPAP due to history of COPD and sleep apnea. PROCEDURE INDICATION: Coronary artery disease, aortic stenosis, and critical right internal carotid artery stenosis. DESCRIPTION OF PROCEDURE: The patient brought to the operating room. General anesthesia was obtained, the patient was prepped and draped. An oblique incision made in the right neck, taken down to the common carotid which was encircled with vessel loops. Large facial venous branches divided between ligatures and suture ligatures. The hypoglossal nerve identified. ANSA clipped and removed to allow upward retraction of the hypoglossal nerve as the internal carotid was well up behind the hyoid muscle, which was divided, upward pressure on the jaw was performed. External carotid branch was retracted out of the way. External carotid and thyroid branch were encircled with vessel loops. Distal internal was dissected out. Heparin was given. After the heparin had circulated, backbleeding of the internal carotid was controlled with a bulldog clamp. Inflow was controlled with a vascular clamp and backbleeding of the external carotid and thyroid branch were controlled with vessel loops. Cerebral oximetry and EEG remained normal for 2 minutes, therefore arteriotomy was made in the common carotid artery taking out the region of dense plaque and into the relatively distal internal carotid artery, the plaque was divided with the common carotid artery with eversion endarterectomy of the external carotid. The plaque feathered well distally. Thorough irrigation was undertaken. The loose bits of debris were removed, the artery was of adequate size and was closed OPERATIVE REPORT [id number] VALDO ARAIZA primarily. After closure, good Doppler signal was noted distally. Protamine was given. Thorough irrigation was undertaken. Should be stated that heparin was given prior to clamping 10,000 units. Drain was placed through a separate stab wound. Surgicel was used for hemostasis. The wound was closed in 3 layers and Dermabond on the skin. Neurologically intact to CV ICU. TRANSINT:[id number] Voice Confirmation ID: [id number] DOCUMENT ID: [id number] TAL TODD MD at 1126 CC: TRISH SORTO M.D. [id number] DICTATION DATE: 10/18/19 1757 PASTER SUPERVISOR: 10/19/19 0152 ADM IN [place] [id number] [place] [address]
--- NOTE | 2019-10-19 13:31 | NUR ---
DR TODD HERE. ABG'S DRAWN AND ART LINE NOT WORKING CORRECTLY TO DRAW AND WILL NOT FLUSH. DCD ART LINE. LOPRESSOR GIVEN ORDERED. PT REPOSITIONED DUE TO DISCOMFORT. 1MG MS GIVEN WELL.
--- NOTE | 2019-10-19 20:32 | NUR ---
DR. TODD NOTIFIED OF ELEVATED HR 120-140. INSTRUCTED TO CALL CARDIOLOGY
--- NOTE | 2019-10-19 20:35 | NUR ---
DR. BELL UPDATED ON PATIENT INFORMED OF HR NEW ORDERS REC'D
--- NOTE | 2019-10-19 22:20 | NUR ---
PATIENT CONTINUES A FIB RVR WITH HR 120-140. BP STABLE. SPOKE WITH DR. BELL AND UPDATED ON PATIENT. NEW ORDERS RECEIVED.
[2019-10-20] VITALS (29 sets, daily range): BP systolic 99–145; BP diastolic 53–79
[2019-10-20 06:05] LABS: BASOPHILS 0 % (0-2); EOSINOPHILS 1.1 % (0-7); HEMATOCRIT 30.5 % (42.0-54.0); HEMOGLOBIN 9.3 g/dL (13.5-17.5); IMMATURE GRANULOCYTES 0.3 % (0-5); LYMPHOCYTES 14.9 % (15-50); MCH 29.8 pg (26.0-34.0); MCHC 30.5 g/dL (31.0-37.0); MCV 97.8 fL (80.0-100.0); MEAN PLATELET VOLUME 9.3 fL (7.4-10.4); MONOCYTES 10.6 % (2-11); NEUTROPHILS 73.1 % (40-80); PLATELET COUNT 210 10x3/uL (130-400); RBC 3.12 10x6/uL (4.20-6.10); RDW 14.8 % (11.5-14.5)
[2019-10-20 06:58] LABS: INR 1.1 (0.85-1.17); PROTIME 14.2 SECONDS (11.6-15.0)
[2019-10-20 06:59] LABS: APTT 33.6 SECONDS (22.8-39.4)
[2019-10-20 07:05] LABS: ANION GAP 9.6 mmol/L (8-16); BILIRUBIN - TOTAL 0.58 mg/dL (0.2-1.3); CARBON DIOXIDE 31.8 mmol/L (21.0-32.0); CREATININE - SERUM 1.2 mg/dL (0.6-1.3); MAGNESIUM - SERUM 2.2 mg/dL (1.8-2.4); POTASSIUM - SERUM 4.4 mmol/L (3.5-5.1); PROTEIN - SERUM 7.7 g/dL (6.4-8.2)
--- NOTE | 2019-10-20 09:33 | NUR ---
PT DEMANDING TO GO BACK TO BED. ASSISTED BACK TO BED. DR LORENZO HERE THIS AM AND DR BELL HERE THIS AM.
--- NOTE | 2019-10-20 16:56 | NUR ---
OOB TO CHAIR. MEAL TRAY SET UP AND PT IS FEEDING SELF WITH OUT PROBLEMS.
--- NOTE | 2019-10-20 19:00 | NUR ---
REPORT RECEIVED. RECEIVED PATIENT UP IN BEDSIDE CHAIR, AWAKE ALERT AND ORIENTED X 4. DENIES NEEDS. ASSESSMENT COMPLETED PER FLOW SHEET WITH NO ACUTE DISTRESS OBSERVED. MONITORS CONNECTED TO PATIENT WITH ALARMS SET. VSS. CONTROLLED AFIB ON MONITOR. CALL LIGHT IN REACH AND ABLE TO UTILIZE TO MAKE NEEDS KNOWN. WILL CONT CURRENT POC
--- NOTE | 2019-10-20 19:40 | NUR ---
ASSISTED TO BED PER REQUEST. KENAN WELL. CALL LIGHT IN REACH
[2019-10-21] VITALS (13 sets, daily range): BP systolic 102–140; BP diastolic 51–73
[2019-10-21 05:32] LABS: BASOPHILS 0.1 % (0-2); EOSINOPHILS 2.2 % (0-7); HEMATOCRIT 32.6 % (42.0-54.0); HEMOGLOBIN 9.9 g/dL (13.5-17.5); IMMATURE GRANULOCYTES 0.1 % (0-5); LYMPHOCYTES 16.1 % (15-50); MCH 29.4 pg (26.0-34.0); MCHC 30.4 g/dL (31.0-37.0); MCV 96.7 fL (80.0-100.0); MEAN PLATELET VOLUME 9.2 fL (7.4-10.4); MONOCYTES 9.4 % (2-11); NEUTROPHILS 72.1 % (40-80); RBC 3.37 10x6/uL (4.20-6.10); RDW 14.5 % (11.5-14.5); WBC 6.9 10x3/uL (4.8-10.8)
[2019-10-21 05:53] LABS: PLATELET COUNT 266 10x3/uL (130-400)
[2019-10-21 06:15] LABS: ALBUMIN 3.1 g/dL (3.4-5.0); ANION GAP 9.5 mmol/L (8-16); BILIRUBIN - TOTAL 0.57 mg/dL (0.2-1.3); CALCIUM 8.5 mg/dL (8.5-10.1); CARBON DIOXIDE 34.5 mmol/L (21.0-32.0); CREATININE - SERUM 1.3 mg/dL (0.6-1.3); PROTEIN - SERUM 7.8 g/dL (6.4-8.2)
--- NOTE | 2019-10-21 07:00 | NUR ---
PT REPORT RECEIVED FROM PROMPT CARE RN NURSE. NO ACUTE SIGNS OF DISTRESS NOTED. PT RESTING IN BEDSIDE CHAIR. SHIFT ASSESSMENT COMPLETED. WILL CONTINUE TO MONITOR
--- NOTE | 2019-10-21 08:15 | NUR ---
PT ASSISTED BACK IN TO BED. TOLERATED WELL. WILL CONTINEU TO MONITOR
--- NOTE | 2019-10-21 10:30 | NUR ---
DR TODD IN ROOM. UPDATE GIVEN. NEW DRESSING APPLIED TO RT NECK. GAVE OKAY TO TRANSFER PT. WILL NOTIFY DR GUSMAN AND SEE IF HE IS OKAY WITH TRANSFER.
--- NOTE | 2019-10-21 10:48 | NUR ---
PT TRANSFERRED DOWN TO ICU. ROOM 2301. DOROTEO HICKMAN RECEIVED REPORT.
--- NOTE | 2019-10-21 11:00 | NUR ---
PT ARRIVED IN THE UNIT. VSS. PT SITTING IN HIS BEDSIDE CHAIR. NO COMPLAINTS AT THIS TIME. CALL LIGHT IN REACH. WILL CONT POC.
--- NOTE | 2019-10-21 14:34 | NUR ---
Nutrition Follow-up: POD 3 R carotid endarterectomy. Pt reports good appetite, although poor PO intake noted in chart over the weekend; noted pt has had some confusion. Glu elevated. A1C 6.8 (10/16). -BM; + flatus. Diet: Regular Wt: 194# (10/20) Labs noted: Glu 198, Alb 3.1 Meds reviewed -Change to carb consistent diet; +dental soft per pt request. -Monitor wt. -RD following.
--- NOTE | 2019-10-21 15:35 | NUR ---
RECEIVED PT TO ROOM 2120 VIA W/C FROM ICU AAOX4 RESP UNLABORED SKIN W/D COLOR WNL PT DENIES ANY NEEDS OR DISCOMFORT AT THIS TIME
--- NOTE | 2019-10-21 19:31 | NUR ---
REPORT RECEIVED AND ROUNDING COMPLETE. PATIENT LAYING IN BED IN LOW FOWLERS, PATIENT HAS A DRESSING TO RIGHT NECK THAT IS C/D/I. CUEVAS IN [place] WITH SCANT AMOUT OF URINE IN CUEVAS BAG. WEARING NASAL CANNLA WITH O2 AT 4L. NO DISTRESS NOTED AND NO NEEDS VOICED AT THIS TIME. LEFT SUBCLAVIAN ACCESS THAT IS SALINE LOCKED. CALL LIGHT WITHIN REACH AND BED IN LOWEST LOCKED POSITION.
[2019-10-22] VITALS: BP 131/68
[2019-10-22 04:00] VITALS: BP 103/62
--- NOTE | 2019-10-22 07:00 | NUR ---
RECEIVED REPORT. ASSUMED CARE OF PATIENT. CALL LIGHT WITHIN REACH. PATIENT DENIES ANY PAIN OR NEEDS THIS AM. WHITE BOARD UPDATED, BEDSIDE SHIFT REPORT COMPLETE. NO DISTRESS.
[2019-10-22 07:14] LABS: ALBUMIN 2.8 g/dL (3.4-5.0); ANION GAP 7.3 mmol/L (8-16); BILIRUBIN - TOTAL 0.44 mg/dL (0.2-1.3); CALCIUM 8.6 mg/dL (8.5-10.1); CARBON DIOXIDE 34.6 mmol/L (21.0-32.0); CREATININE - SERUM 1.3 mg/dL (0.6-1.3); POTASSIUM - SERUM 3.9 mmol/L (3.5-5.1); PROTEIN - SERUM 7.6 g/dL (6.4-8.2)
[2019-10-22 08:00] VITALS: BP 105/60
--- NOTE | 2019-10-22 09:22 | NUR ---
BLADDER TRAINING INITIATED AT THIS TIME.
[2019-10-22 09:26] LABS: BASOPHILS 0.2 % (0-2); EOSINOPHILS 2.7 % (0-7); HEMATOCRIT 31.7 % (42.0-54.0); HEMOGLOBIN 9.7 g/dL (13.5-17.5); IMMATURE GRANULOCYTES 0.2 % (0-5); MCH 29.3 pg (26.0-34.0); MCHC 30.6 g/dL (31.0-37.0); MCV 95.8 fL (80.0-100.0); MEAN PLATELET VOLUME 9.4 fL (7.4-10.4); MONOCYTES 9.5 % (2-11); NEUTROPHILS 64.4 % (40-80); PLATELET COUNT 305 10x3/uL (130-400); RBC 3.31 10x6/uL (4.20-6.10); RDW 14.4 % (11.5-14.5); WBC 6.4 10x3/uL (4.8-10.8)
--- NOTE | 2019-10-22 10:00 | NUR ---
PT ASSISTED PATIENT OOB. PT AMBULATED WITH ASSISTANCE OUT OF ROOM AND BACK TO CHAIR AT BEDSIDE. CALL LIGHT WIHTIN REACH. NO DISTRESS.
--- NOTE | 2019-10-22 10:25 | NUR ---
Rehab Note- Acute Inpatient Rehab prescreen order received. The patient has [facility] insurance and will require a PreAuth prior to an acute inpatient rehab stay. He has a pending OT Eval at this time that will be needed for PreAuth process. THank you for this referral! Luisa Helms RN Clinical Liaison, [facility] Rehab
[2019-10-22 11:00] VITALS: BP 120/64
--- NOTE | 2019-10-22 11:59 | NUR ---
PT PAGED TO ASSIST WITH PATIENT GOING BACK TO BED PER PATIENT REQUEST.
[2019-10-22 15:00] VITALS: BP 119/62
--- NOTE | 2019-10-22 19:53 | NUR ---
RECEIVED BEDSIDE REPORT. ROUNDING COMPLETE. PATIENT IS ALERT AND ORIENTED, RESTING COMFORTABLY IN BED. RESPIRATIONS ARE EVEN AND UNLABORED. NO S/S OF DISTRESS. NO C/O PAIN. CALL LIGHT WITHIN REACH. WILL CPOC.
[2019-10-22 20:00] VITALS: BP 108/55
[2019-10-23] VITALS: BP 108/54
[2019-10-23 04:00] VITALS: BP 117/54
[2019-10-23 06:05] LABS: BASOPHILS 0.3 % (0-2); EOSINOPHILS 2.7 % (0-7); HEMATOCRIT 32.7 % (42.0-54.0); HEMOGLOBIN 10.2 g/dL (13.5-17.5); IMMATURE GRANULOCYTES 0.3 % (0-5); LYMPHOCYTES 18.7 % (15-50); MCH 29.6 pg (26.0-34.0); MCHC 31.2 g/dL (31.0-37.0); MCV 94.8 fL (80.0-100.0); MEAN PLATELET VOLUME 9.5 fL (7.4-10.4); MONOCYTES 7.8 % (2-11); NEUTROPHILS 70.2 % (40-80); PLATELET COUNT 320 10x3/uL (130-400); RBC 3.45 10x6/uL (4.20-6.10); RDW 14.3 % (11.5-14.5); WBC 7.2 10x3/uL (4.8-10.8)
[2019-10-23 07:03] LABS: ANION GAP 10.6 mmol/L (8-16); CALCIUM 8.8 mg/dL (8.5-10.1); CARBON DIOXIDE 32.1 mmol/L (21.0-32.0); CREATININE - SERUM 1.4 mg/dL (0.6-1.3); POTASSIUM - SERUM 3.7 mmol/L (3.5-5.1)
[2019-10-23 09:00] VITALS: BP 150/73
[2019-10-23 13:36] VITALS: BP 147/69
--- NOTE | 2019-10-23 13:59 | NUR ---
ASSISTED PATIENT WITH VICK DUEÑAS PRIMARY NURSE BACK TO BED. DENIES NEEDS AT THIS TIME. ON 4L PER HIGH FLOW. BED ALARM SET. CALL LIGHT IN USE.
--- NOTE | 2019-10-23 14:27 | NUR ---
LEFT CVL DRESSING CHANGED USING STERILE TECHNIQUE.
--- NOTE | 2019-10-23 15:55 | NUR ---
OT NOTE: IN ROOM AMB WITH USE OF RW AND CGA; TOILET TRANSFERS WITH MIN ASSIST; SIMPLE GROOMING TASKS WITH SET UP; EDUCATED IN UE/LE EXS WHILE IN SEATED POSITION. LINDSEY CRESPO, OTR/L
[2019-10-23 19:11] VITALS: BP 105/81
--- NOTE | 2019-10-23 19:30 | NUR ---
RECEIVED BEDSIDE REPORT. ROUNDING COMPLETE. PATIENT IS ALERT AND ORIENTED, RESTING COMFORTABLY IN BED. RESPIRATIONS ARE EVEN AND UNLABORED. NO S/S OF DISTRESS. NO C/O PAIN. DENIES MET. CALL LIGHT WITHIN REACH. WILL CPOC.
[2019-10-23 20:30] VITALS: BP 126/65
--- NOTE | 2019-10-23 21:42 | NUR ---
OT NOTE: PT COMPLETED SUPINE TO SIT WITH SBA. PT COMPLETED SIT TO STAND WIHT CGA. PT COMPLETED ADL MOB WITH CGA. PT COMPLETED UE AROM WITH FUNCTIONAL WALKER USE. PT COMPLETED FACE HYGIENE WITH SET UP AT EOB. [phone] THANK YOU,HAYDEE CRAIN
[2019-10-24 04:30] VITALS: BP 126/60
[2019-10-24 07:07] LABS: BASOPHILS 0.1 % (0-2); EOSINOPHILS 2.4 % (0-7); HEMATOCRIT 35.5 % (42.0-54.0); HEMOGLOBIN 11.2 g/dL (13.5-17.5); IMMATURE GRANULOCYTES 0.2 % (0-5); LYMPHOCYTES 20.5 % (15-50); MCH 29.8 pg (26.0-34.0); MCHC 31.5 g/dL (31.0-37.0); MCV 94.4 fL (80.0-100.0); MEAN PLATELET VOLUME 9.2 fL (7.4-10.4); MONOCYTES 11.7 % (2-11); NEUTROPHILS 65.1 % (40-80); PLATELET COUNT 344 10x3/uL (130-400); RBC 3.76 10x6/uL (4.20-6.10); RDW 14.3 % (11.5-14.5); WBC 8.2 10x3/uL (4.8-10.8)
[2019-10-24 07:31] LABS: ANION GAP 9.5 mmol/L (8-16); CALCIUM 8.9 mg/dL (8.5-10.1); CARBON DIOXIDE 35.6 mmol/L (21.0-32.0); CREATININE - SERUM 1.5 mg/dL (0.6-1.3); POTASSIUM - SERUM 4.1 mmol/L (3.5-5.1)
--- NOTE | 2019-10-24 10:00 | NUR ---
Nutrition Follow-up: Good/fair appetite. Ate ~50% of breakfast this AM. Denies N/V/C/D. Diet: Diabetic, Dental Soft PO intake: 82% avg x 7 meals Wt: 199# (10/22) Last BM: 10/22 Labs noted: Glu 142 Meds noted: Protonix, Lasix, Micro K, electrolyte protocol -Encourage PO intake and honor food preferences within diet restrictions. -Monitor wt; noted daily wts ordered. -RD following.
[2019-10-24] MEDS ORDERED: BETAPACE 80 MG80 MG PO (16:29)
[2019-10-24] MEDS ORDERED: PLAVIX75 MG PO (16:29)
[2019-10-24] MEDS ORDERED: XARELTO20 MG PO (16:29)
[2019-10-24] MEDS ORDERED: TESSALON PERLE100 MG PO (16:30)
[2019-10-24] MEDS ORDERED: MUCINEX DM ER1 EAC1 PO (16:30)
[2019-10-24] MEDS ORDERED: LASIX40 MG PO (16:30)
--- NOTE | 2019-10-24 16:35 | MORECARE ---
CASE MANAGEMENT DISCHARGE SUMMARY PATIENT: VALDO ARAIZA UNIT: [id number] ADM DATE: 10/12/19 AGE: 69 : 51 SEX: M ROOM/BED: D.2121 AUTHOR: MARCIE ESCUDERO PHYSICIAN: REFERRING PHYSICIAN: KAMILA EPPERSON MD DATE OF SERVICE: 10/24/19 Discharge Plan Patient Name: VALDO ARAIZA Facility: [facility]:[place] : 1950 Planned Disposition: Home with Home Health Anticipated Discharge Date: Discharge Date: Expected LOS: Initial Reviewer: [email or web address] Initial Review Date: 10/12/2019 Generated: 10/24/19 5:35 pm Patient Name: VALDO ARAIZA Page 13573 at 1635 All edits/amendments must be made on the electronic document DICTATION DATE: 10/24/19 1635 SPRAY OPERATOR: KENNA 10/24/19 1635 RPT#: [id number] DC DATE: STATUS: ADM IN [facility] [address] [place] [address] END OF REPORT
[2019-10-24] MEDS ORDERED: PERFOROMIS20 MCG/21 INH (16:38)
[2019-10-24] MEDS ORDERED: ATROVENT 0.02%2.5 ML UPD (16:38)
[2019-10-24] MEDS ORDERED: PULMICORT0.5 MG/21 UPD (16:38)
--- NOTE | 2019-10-24 16:53 | MORECARE ---
CASE MANAGEMENT DISCHARGE SUMMARY PATIENT: VALDO ARAIZA UNIT: [id number] ADM DATE: 10/12/19 AGE: 69 : 51 SEX: M ROOM/BED: D.2128 AUTHOR: MARCIE ESCUDERO PHYSICIAN: REFERRING PHYSICIAN: KAMILA EPPERSON MD DATE OF SERVICE: 10/24/19 Discharge Plan Patient Name: VALDO ARAIZA Facility: [facility]:[place] : 1950 Planned Disposition: Home with Home Health Anticipated Discharge Date: Discharge Date: Expected LOS: Initial Reviewer: [id number] Initial Review Date: 10/12/2019 Generated: 10/24/19 5:53 pm Comments DCP- Discharge Planning Updated by [id number]: Alaina Dominguez on 10/24/19 3:[address] CM SPOKE WITH THE PATIENT AT THE BEDSIDE. HE PLANS TO RETURN TO HOME. HE WOULD LIKE TO HAVE HOME HEALTH SERVICE. HE [facility] DOES NOT WISH TO RETURN TO [facility]. NO H/H OR COMMUNITY SERVICES PRIOR TO ADMISSION. HIS ADDRESS HAD CHANGED TO [address] [place] [address]. HIS PHONE NUMBER HAS ALSO CHANGED BUT HE CANNOT RECALL AT THIS TIME. HE COULD NOT REMEMBER HIS PCP'S NAME. BUT HAS A CARD IN HIS WALLET. HE HAS [address] TO ENTER HIS HOME. HE SAYS THERE IS RAILINGON THE WALL NOT ATTACHED TO THE STAIRS. HE DOES NOT HAVE A NEBULIZER OR OXYGEN AT HOME. DISCUSSED AN ORDER FOR WALK TEST IN IDT THIS EARLY AM. CM TO FOLLOW TO ASSIST W/ DISCHARGE NEEDS. Last DP export: 10/24/19 3:35 p Patient Name: VALDO ARAIZA Page 80091 at 1653 All edits/amendments must be made on the electronic document DICTATION DATE: 10/24/191652 COMMERCIAL LENDER: KENNA 10/24/191652 RPT#: [id number] DC DATE: STATUS: ADM IN [facility] [address] [place] [address] END OF REPORT
[2019-10-24 18:20] VITALS: BP 170/87
--- NOTE | 2019-10-24 19:09 | MORECARE ---
CASE MANAGEMENT DISCHARGE SUMMARY PATIENT: VALDO ARAIZA UNIT: [id number] ADM DATE: 10/12/19 AGE: 69 : 51 SEX: M ROOM/BED: D.1265 AUTHOR: MARCIE ESCUDERO PHYSICIAN: REFERRING PHYSICIAN: KAMILA EPPERSON MD DATE OF SERVICE: 10/24/19 Discharge Plan Patient Name: VALDO ARAIZA Facility: [facility]:[place] : 1950 Planned Disposition: Home with Home Health Anticipated Discharge Date: Discharge Date: Expected LOS: Initial Reviewer: [email or web address] Initial Review Date: 10/12/2019 Generated: 10/24/19 8:08 pm Comments DCP- Discharge Planning Updated by [email or web address]: Alaina Dominguez on 10/24/19 6:[address] DISCHARGE ORDERS LATE AFTERNOON. WILL ORDER IN AM FOR SAFE DISCHARGE TO HOME.. WILL NEED MD SIGNATURE FOR DME PROVIDER PAPERWORK PLAN FOR OXYGEN AND NEB DELIVERY. WILL ARRANGE FOR HOME HEALTH. DCP- Discharge Planning Updated by [email or web address]: Aliana Dominguez on 10/24/19 3:[address] CM SPOKE WITH THE PATIENT AT THE BEDSIDE. HE PLANS TO RETURN TO HOME. HE WOULD LIKE TO HAVE HOME HEALTH SERVICE. HE [facility]. DOES NOT WISH TO RETURN TO [facility]. NO H/H OR COMMUNITY SERVICES PRIOR TO ADMISSION. HIS ADDRESS HAD CHANGED TO [address] [place] [address] IN [place]. HIS PHONE NUMBER HAS ALSO CHANGED BUT HE CANNOT RECALL AT THIS TIME. HE COULD NOT REMEMBER HIS PCP'S NAME. BUT HAS A CARD IN HIS WALLET. HE HAS [address] TO ENTER HIS HOME. HE SAYS THERE IS RAILINGON THE WALL NOT ATTACHED TO THE STAIRS. HE DOES NOT HAVE A NEBULIZER OR OXYGEN AT HOME. DISCUSSED AN ORDER FOR WALK TEST IN IDT THIS EARLY AM. CM TO FOLLOW TO ASSIST W/ DISCHARGE NEEDS. Last DP export: 10/24/19 3:53 p Patient Name: VALDO ARAIZA Page 48034 at 190 All edits/amendments must be made on the electronic document DICTATION DATE: 10/24/191908 DIRECTOR OF SOFTWARE ENGINEERING: KENNA 10/24/191908 RPT#: [id number] DC DATE: STATUS: ADM IN [facility] [address] [place] [address] END OF REPORT
--- NOTE | 2019-10-24 19:32 | NUR ---
RECEIVED BEDSIIDE REPORT. ROUNDING COMPLETE. PATIENT IS ALERT AND ORIENTED, RESTING COMFORTABLY IN BED. RESPIRATIONS ARE EVEN AND UNLABORED. NO S/S OF DISTRESS. NO C/O PAIN. CALL LIGHT WITHIN REACH. WILL CPOC.
[2019-10-24 20:00] VITALS: BP 101/71
[2019-10-25] VITALS: BP 115/55
[2019-10-25 04:00] VITALS: BP 101/56
[2019-10-25 06:55] LABS: BASOPHILS 0.1 % (0-2); EOSINOPHILS 2.1 % (0-7); HEMATOCRIT 34.7 % (42.0-54.0); HEMOGLOBIN 11.2 g/dL (13.5-17.5); IMMATURE GRANULOCYTES 0.2 % (0-5); LYMPHOCYTES 20.7 % (15-50); MCH 30.2 pg (26.0-34.0); MCHC 32.3 g/dL (31.0-37.0); MCV 93.5 fL (80.0-100.0); MONOCYTES 11.5 % (2-11); NEUTROPHILS 65.4 % (40-80); PLATELET COUNT 388 10x3/uL (130-400); RBC 3.71 10x6/uL (4.20-6.10); RDW 14.3 % (11.5-14.5); WBC 9.4 10x3/uL (4.8-10.8)
[2019-10-25 07:00] LABS: ANION GAP 8.4 mmol/L (8-16); CALCIUM 9.1 mg/dL (8.5-10.1); CARBON DIOXIDE 33.7 mmol/L (21.0-32.0); CREATININE - SERUM 1.4 mg/dL (0.6-1.3); POTASSIUM - SERUM 4.1 mmol/L (3.5-5.1)
[2019-10-25 08:01] VITALS: BP 103/72
--- NOTE | 2019-10-25 09:27 | MORECARE ---
CASE MANAGEMENT DISCHARGE SUMMARY PATIENT: VALDO ARAIZA UNIT: [id number] ADM DATE: 10/12/19 AGE: 69 : 51 SEX: M ROOM/BED: D.7363 AUTHOR: [email or web address] PHYSICIAN: REFERRING PHYSICIAN: KAMILA EPPERSON MD DATE OF SERVICE: 10/25/19 Discharge Plan Patient Name: VALDO ARAIZA Facility: [facility]:[place] : 1950 Planned Disposition: Home with Home Health Anticipated Discharge Date: Discharge Date: Expected LOS: Initial Reviewer: [email or web address] Initial Review Date: 10/12/2019 Generated: 10/25/19 10:26 am Comments DCP- Discharge Planning Updated by [email or web address]: Alaina Dominguez on 10/24/19 6:[address] DISCHARGE ORDERS LATE AFTERNOON. WILL ORDER IN AM FOR SAFE DISCHARGE TO HOME.. WILL NEED MD SIGNATURE FOR DME PROVIDER PAPERWORK PLAN FOR OXYGEN AND NEB DELIVERY. WILL ARRANGE FOR HOME HEALTH. DCP- Discharge Planning Updated by [email or web address]: Alaina Dominguez on 10/24/19 3:[address] CM SPOKE WITH THE PATIENT AT THE BEDSIDE. HE PLANS TO RETURN TO HOME. HE WOULD LIKE TO HAVE HOME HEALTH SERVICE. HE HAS HAD HOME HEALTH PREVIOUSLY W/ [facility]. DOES NOT WISH TO RETURN TO [facility]. NO H/H OR COMMUNITY SERVICES PRIOR TO ADMISSION. HIS ADDRESS HAD CHANGED TO [address] [place] [address] IN [place]. HIS PHONE NUMBER HAS ALSO CHANGED BUT HE CANNOT RECALL AT THIS TIME. HE COULD NOT REMEMBER HIS PCP'S NAME. BUT HAS A CARD IN HIS WALLET. HE HAS [address] TO ENTER HIS HOME. HE SAYS THERE IS RAILINGON THE WALL NOT ATTACHED TO THE STAIRS. HE DOES NOT HAVE A NEBULIZER OR OXYGEN AT HOME. DISCUSSED AN ORDER FOR WALK TEST IN IDT THIS EARLY AM. CM TO FOLLOW TO ASSIST W/ DISCHARGE NEEDS. External Providers External Provider: [facility] Next Contact Date: Service Request Date: Service Type: Resolution: Reviewer: Comments: Last DP export: 10/24/19 6:09 p Patient Name: VALDO ARAIZA Page 38798 at 0927 All edits/amendments must be made on the electronic document DICTATION DATE: 10/25/19925 RESEARCH NURSE: KENNA 10/25/19925 RPT#: [id number] DC DATE: STATUS: ADM IN [facility] [address] [place] [address] END OF REPORT
--- NOTE | 2019-10-25 10:50 | NUR ---
Recieved a call from [facility] this patient has been denied by the emergency medical tech. If the physician disagrees a peer to peer can be arranged by calling [phone]. Discussed in the IDT meeting today. Kinza Smith RN Clinical Liaison, Rehab
--- NOTE | 2019-10-25 12:27 | MORECARE ---
CASE MANAGEMENT DISCHARGE SUMMARY PATIENT: VALDO ARAIZA UNIT: [id number] ADM DATE: 10/12/19 AGE: 69 : 51 SEX: M ROOM/BED: D.5928 AUTHOR: MARCIE ESCUDERO PHYSICIAN: REFERRING PHYSICIAN: KAMILA EPPERSON MD DATE OF SERVICE: 10/25/19 Discharge Plan Patient Name: VALDO ARAIZA Facility: [facility]:[place] : 1950 Planned Disposition: Home with Home Health Anticipated Discharge Date: Discharge Date: Expected LOS: Initial Reviewer: [email or web address] Initial Review Date: 10/12/2019 Generated: 10/25/19 1:27 pm Comments DCP- Discharge Planning Updated by [email or web address]: Alaina Dominguez on 10/24/19 6:[address] DISCHARGE ORDERS LATE AFTERNOON. WILL ORDER IN AM FOR SAFE DISCHARGE TO HOME.. WILL NEED MD SIGNATURE FOR DME PROVIDER PAPERWORK PLAN FOR OXYGEN AND NEB DELIVERY. WILL ARRANGE FOR HOME HEALTH. DCP- Discharge Planning Updated by [id number]: Alaina Dominguez on 10/24/19 3:[address] CM SPOKE WITH THE PATIENT AT THE BEDSIDE. HE PLANS TO RETURN TO HOME. HE WOULD LIKE TO HAVE HOME HEALTH SERVICE. HE HAS [facility]. DOES NOT WISH TO RETURN TO [facility]. NO H/H OR COMMUNITY SERVICES PRIOR TO ADMISSION. HIS ADDRESS HAD CHANGED TO [address] [place] [address] IN [place]. HIS PHONE NUMBER HAS ALSO CHANGED BUT HE CANNOT RECALL AT THIS TIME. HE COULD NOT REMEMBER HIS PCP'S NAME. BUT HAS A CARD IN HIS WALLET. HE HAS [address] TO ENTER HIS HOME. HE SAYS THERE IS RAILINGON THE WALL NOT ATTACHED TO THE STAIRS. HE DOES NOT HAVE A NEBULIZER OR OXYGEN AT HOME. DISCUSSED AN ORDER FOR WALK TEST IN IDT THIS EARLY AM. CM TO FOLLOW TO ASSIST W/ DISCHARGE NEEDS. External Providers External Provider: Kellie Next Contact Date: Service Request Date: Service Type: Resolution: Reviewer: Comments: Last DP export: 10/25/19 8:27 a Patient Name: VALDO ARAIZA Page 12770 at 1227 All edits/amendments must be made on the electronic document DICTATION DATE: 10/25/191226 MILITARY TECHNOLOGY SPECIALIST: KENNA 10/25/197 RPT#: [id number] DC DATE: STATUS: ADM IN [facility] [address] [place] [address] END OF REPORT
[2019-10-25 12:30] VITALS: BP 106/56
--- NOTE | 2019-10-25 12:48 | MORECARE ---
CASE MANAGEMENT DISCHARGE SUMMARY PATIENT: VALDO ARAIZA UNIT: [id number] ADM DATE: 10/12/19 AGE: 69 : 51 SEX: M ROOM/BED: D.4636 AUTHOR: MARCIE ESCUDERO PHYSICIAN: REFERRING PHYSICIAN: KAMILA EPPERSON MD DATE OF SERVICE: 10/25/19 Discharge Plan Patient Name: VALDO ARAIZA Facility: [facility]:[place] : 1950 Planned Disposition: Home with Home Health Anticipated Discharge Date: Discharge Date: Expected LOS: Initial Reviewer: [email or web address] Initial Review Date: 10/12/2019 Generated: 10/25/19 1:47 pm Comments DCP- Discharge Planning Updated by [email or web address]: Daya Garcia on 10/25/19 11:[address] Patient Name: VALDO ARAIZA Encounter No: [id number] : 1950 Primary Insurance: [employer] Anticipated DC Date: Planned Disposition: Home with Home Health External Planned Provider: : DCP follow-up note: CM met with patient to complete final dc planning assessment. CM discussed availability of home health, and medical equipment. Patient states his at [facility] last month and does not want to be reminded of her . States he does not want anything to do with that facility. CM called [facility] , and [employer] who are in network with the patient's insurance. Both companies stated they are unable to meet his needs. CM spoke with pt about resumption of [facility]. Pt in agreement. CM called [facility] [employer] at [phone] with referral. [facility] states they are available to start service next Monday. Pt states he will need oxygen, nebs, and would like a rolling walker. KENNEDY signed to [facility] [place], and [facility]. CM spoke with Deshaun at [facility] at [phone]. Patient denied known discharge needs at this time. Transportation provider at discharge will be his brother. DC IMM delivered, explained, signed by the patient, and placed in chart. Signed form also left with the patient. CM will continue to follow and will assist as needed with dc plans/needs. Patient and family in agreement with discharge plan. Daya Garcia DCP- Discharge Planning Updated by [email or web address]: Alaina Dominguez on 10/24/19 6:[address] DISCHARGE ORDERS LATE AFTERNOON. WILL ORDER IN AM FOR SAFE DISCHARGE TO HOME.. WILL NEED MD SIGNATURE FOR DME PROVIDER PAPERWORK PLAN FOR OXYGEN AND NEB DELIVERY. WILL ARRANGE FOR HOME HEALTH. DCP- Discharge Planning Updated by [id number]: Alaina Dominguez on 10/24/19 3:[address] CM SPOKE WITH THE PATIENT AT THE BEDSIDE. HE PLANS TO RETURN TO HOME. HE WOULD LIKE TO HAVE HOME HEALTH SERVICE. HE HAS [facility]. DOES NOT WISH TO RETURN TO [facility]. NO H/H OR COMMUNITY SERVICES PRIOR TO ADMISSION. HIS ADDRESS HAD CHANGED TO [address] [place] [address] IN [place]. HIS PHONE NUMBER HAS ALSO CHANGED BUT HE CANNOT RECALL AT THIS TIME. HE COULD NOT REMEMBER HIS PCP'S NAME. BUT HAS A CARD IN HIS WALLET. HE HAS [address] TO ENTER HIS HOME. HE SAYS THERE IS RAILINGON THE WALL NOT ATTACHED TO THE STAIRS. HE DOES NOT HAVE A NEBULIZER OR OXYGEN AT HOME. DISCUSSED AN ORDER FOR WALK TEST IN IDT THIS EARLY AM. CM TO FOLLOW TO ASSIST W/ DISCHARGE NEEDS. Coverage Notice Reviewer: [id number] Shan Garcia Notice Issued Date-Time: 10/25/2019 9:40 Notice Type: Patient Choice Letter Notice Delivered To: Patient Relationship to Patient: Client Manager Large Law Name: Delivery Method: HAND - Hand Delivered Tanja Days: Prior Verbal Notification: Recipient Understood Notice: Recipient Signature: Yes Med Rec Note Co-signed by Attending: Coverage Notice Comment: MEIR NEBS, O2, ROLLING WALKER Reviewer: [id number] Shan Garcia Notice Issued Date-Time: 10/25/2019 9:40 Notice Type: IM Discharge Notice Notice Delivered To: Patient Relationship to Patient: Client Manager Large Law Name: Delivery Method: HAND - Hand Delivered Tanja Days: Prior Verbal Notification: Yes Recipient Understood Notice: Recipient Signature: Yes Med Rec Note Co-signed by Attending: Coverage Notice Comment: DC IMM Last DP export: 10/25/19 11:27 a Patient Name: VALDO ARAIZA Page [phone] at 1248 All edits/amendments must be made on the electronic document DICTATION DATE: 10/25/191246 REPAIRER HAIRSPRING: KENNA 10/25/191246 RPT#: [id number] DC DATE: STATUS: ADM IN [facility] [address] [place] [address] END OF REPORT
--- NOTE | 2019-10-25 13:26 | NUR ---
[employer] QUITLINE FORM COMPLETED AND FAXED.
--- NOTE | 2019-10-25 14:18 | NUR ---
PT DISCHARGED HOME VIA WHEELCHAIR WITH FAMILY. PIV AND CVL REMOVED WITH CATHETER TIP FULLY INTACT. PRESSURE HELD PER PROTOCOL. PRESSURE DRESSING PLACED. TELEMETRY REMOVED AND RETURNED. PT SIGNED PROPER DISCHARGE INSTRUCTIONS AND REMOVED ALL VALUABLES FROM THE ROOM.
--- NOTE | 2019-10-28 09:22 | MORECARE ---
CASE MANAGEMENT DISCHARGE SUMMARY PATIENT: VALDO ARAIZA UNIT: [id number] ADM DATE: 10/12/19 AGE: 69 : 51 SEX: M ROOM/BED: D.5532 AUTHOR: MARCIE ESCUDERO PHYSICIAN: REFERRING PHYSICIAN: KAMILA EPPERSON MD DATE OF SERVICE: 10/28/19 Discharge Plan Patient Name: VALDO ARAIZA Facility: [facility]:[place] : 1950 Planned Disposition: Home with Home Health Anticipated Discharge Date: Discharge Date: 10/25/2019 Expected LOS: Initial Reviewer: [email or web address] Initial Review Date: 10/12/2019 Generated: 10/28/19 10:21 am Comments DCP- Discharge Planning Updated by [email or web address]: Daya Garcia on 10/25/19 11:[address] Patient Name: VALDO ARAIZA Encounter No: [id number] : 1950 Primary Insurance: [employer] MEDICARE SOLUTIONS Anticipated DC Date: Planned Disposition: Home with Home Health External Planned Provider: : DCP follow-up note: CM met with patient to complete final dc planning assessment. CM discussed availability of home health, and medical equipment. Patient states his at [facility] last month and does not want to be reminded of her . States he does not want anything to do with that facility. CM called [facility] , and [employer] who are in network with the patient's insurance. Both companies stated they are unable to meet his needs. CM spoke with pt about resumption of [facility]. Pt in agreement. CM called [facility] [employer] at [phone] with referral. [facility] states they are available to start service next Monday. Pt states he will need oxygen, nebs, and would like a rolling walker. KENNEDY signed to [facility], and [facility]. CM spoke with Deshaun at [facility] at [phone]. Patient denied known discharge needs at this time. Transportation provider at discharge will be his brother. DC IMM delivered, explained, signed by the patient, and placed in chart. Signed form also left with the patient. CM will continue to follow and will assist as needed with dc plans/needs. Patient and family in agreement with discharge plan. Daya Garcia DCP- Discharge Planning Updated by [email or web address]: Alaina Dominguez on 10/24/19 6:[address] DISCHARGE ORDERS LATE AFTERNOON. WILL ORDER IN AM FOR SAFE DISCHARGE TO HOME.. WILL NEED MD SIGNATURE FOR DME PROVIDER PAPERWORK PLAN FOR OXYGEN AND NEB DELIVERY. WILL ARRANGE FOR HOME HEALTH. DCP- Discharge Planning Updated by [email or web address]: Alaina Dominguez on 10/24/19 3:[address] CM SPOKE WITH THE PATIENT AT THE BEDSIDE. HE PLANS TO RETURN TO HOME. HE WOULD LIKE TO HAVE HOME HEALTH SERVICE. HE HAS [facility]. DOES NOT WISH TO RETURN TO [facility]. NO H/H OR COMMUNITY SERVICES PRIOR TO ADMISSION. HIS ADDRESS HAD CHANGED TO [address] [place] [address] IN [place]. HIS PHONE NUMBER HAS ALSO CHANGED BUT HE CANNOT RECALL AT THIS TIME. HE COULD NOT REMEMBER HIS PCP'S NAME. BUT HAS A CARD IN HIS WALLET. HE HAS [address] TO ENTER HIS HOME. HE SAYS THERE IS RAILINGON THE WALL NOT ATTACHED TO THE STAIRS. HE DOES NOT HAVE A NEBULIZER OR OXYGEN AT HOME. DISCUSSED AN ORDER FOR WALK TEST IN IDT THIS EARLY AM. CM TO FOLLOW TO ASSIST W/ DISCHARGE NEEDS. Coverage Notice Reviewer: [id number] Shan Garcia Notice Issued Date-Time: 10/25/2019 9:40 Notice Type: Patient Choice Letter Notice Delivered To: Patient Relationship to Patient: Cmo & President Name: Delivery Method: HAND - Hand Delivered Tanja Days: Prior Verbal Notification: Recipient Understood Notice: Recipient Signature: Yes Med Rec Note Co-signed by Attending: Coverage Notice Comment: MEIR NEBS, O2, ROLLING WALKER Reviewer: [id number] Shan Garcia Notice Issued Date-Time: 10/25/2019 9:40 Notice Type: IM Discharge Notice Notice Delivered To: Patient Relationship to Patient: Cmo & President Name: Delivery Method: HAND - Hand Delivered Tanja Days: Prior Verbal Notification: Yes Recipient Understood Notice: Recipient Signature: Yes Med Rec Note Co-signed by Attending: Coverage Notice Comment: DC IMM Last DP export: 10/25/19 11:48 a Patient Name: VALDO ARAIZA Page [id number] at 0922 All edits/amendments must be made on the electronic document DICTATION DATE: 10/28/19920 AIRCRAFT FUSELAGE FRAMER: KENNA 10/28/19920 RPT#: [id number] DC DATE:10/25/19 STATUS: DIS IN [facility] [address] [place] [address] END OF REPORT
== END 2019-10-25 14:19 | disposition home or self-care (01) | DRG 37 ==
LOC: D.ER 03:08 → D.CVICU 06:47 → D.M2 06:47 → D.CVICU 10-18 16:38 → D.ICU 10-21 10:45 → D.M2 10-21 16:07
PROVIDERS: Family Medicine; Internal Medicine Cardiovascular Disease; Internal Medicine Pulmonary Disease; Thoracic Surgery (Cardiothoracic Vascular Surgery); ADMIT Family Medicine; ATTEND Family Medicine
PROC: B2151ZZ Fluoroscopy of Left Heart using Low Osmolar Contrast (ICD-10-PCS; 2019-10-14)
PROC: 4A023N7 Measurement of Cardiac Sampling and Pressure, Left Heart, Percutaneous Approach (ICD-10-PCS; 2019-10-14)
PROC: B2111ZZ Fluoroscopy of Multiple Coronary Arteries using Low Osmolar Contrast (ICD-10-PCS; principal; 2019-10-14 12:50)
PROC: 03CK0ZZ Extirpation of Matter from Right Internal Carotid Artery, Open Approach (ICD-10-PCS; 2019-10-18)
DX: I65.23 Occlusion and stenosis of bilateral carotid arteries (principal); J96.01 Acute respiratory failure with hypoxia; I50.31 Acute diastolic (congestive) heart failure; J18.9 Pneumonia, unspecified organism; F17.203 Nicotine dependence unspecified, with withdrawal; J44.1 Chronic obstructive pulmonary disease with (acute) exacerbation; J44.0 Chronic obstructive pulmonary disease with (acute) lower respiratory infection; I13.0 Hypertensive heart and chronic kidney disease with heart failure and stage 1 through stage 4 chronic kidney disease, or unspecified chronic kidney disease; I25.10 Atherosclerotic heart disease of native coronary artery without angina pectoris; I48.91 Unspecified atrial fibrillation; D64.9 Anemia, unspecified; E87.5 Hyperkalemia; J20.9 Acute bronchitis, unspecified; N18.9 Chronic kidney disease, unspecified; I35.0 Nonrheumatic aortic (valve) stenosis